=== PATIENT | male | born 1980 | race African-American/Black ===

== ENCOUNTER 2025-08-25 19:27 | Emergency (ER) | payer MEDICAID ==
[~2025-08-25] VITALS: Ht 190.5 cm; Wt 115.0 kg
[2025-08-25 19:29] VITALS: TEMP 98.6; O2SAT 96
[2025-08-25 20:35] VITALS: BP 145/88; PULSE 90; RESP 18
[2025-08-25] MEDS: HYDROCODONE/ACETAMINOPHEN 7.5/325MG TABLET PO ONE (20:35)
[2025-08-25] MEDS: IBUPROFEN 800MG TABLET PO ONE (20:35)
[2025-08-25] MEDS ORDERED: IBUP-1525 MT (20:53)
[2025-08-25] MEDS ORDERED: TOPUD MT (20:53)
== END 2025-08-25 21:40 | disposition home or self-care (01) ==
LOC: ER 19:27
DX: S93.401A Sprain of unspecified ligament of right ankle, initial encounter (principal); Z88.0 Allergy status to penicillin; X50.1XXA Overexertion from prolonged static or awkward postures, initial encounter; Y93.89 Activity, other specified; Y92.89 Other specified places as the place of occurrence of the external cause; Y99.8 Other external cause status
CPT/HCPCS: 73590; 73610; 73630; 29505; 99284; Z7610; A6449